=== PATIENT | male | born 1965 | race Hispanic/Latino ===

== ENCOUNTER 2019-03-10 10:03 | Day surgery (SDC) | payer OTHER ==
[2019-03-10] MEDS ORDERED: SODIUM CHLORIDE 0.9% 1000 ML 1,000 ML ONE (10:26)
--- NOTE | 2019-03-10 10:48 | Anesthesia Consultation ---
Anesthesia Consult and Med Hx Date of service: 03/10/19 - Airway Anesthetic Teeth Evaluation: Partials ROM Head & Neck: Adequate Mental/Hyoid Distance: Inadequate Mallampati Class: Class III Intubation Access Assessment: Possibly Difficult - Pulmonary Exam CTA: Yes - Cardiac Exam Cardiac Exam: RRR - Pre-Operative Health Status ASA Pre-Surgery Classification: ASA3 Proposed Anesthetic Plan: MAC - Pulmonary Hx Smoking: Yes (1PPD) Hx Respiratory Symptoms: No Hx Sleep Apnea: Yes (noncompliant with CPAP) - Cardiovascular System Hx Hypertension: Yes Hx Heart Attack/AMI: No - Central Nervous System CVA: No - Gastrointestinal Hx Gastroesophageal Reflux Disease: No - Endocrine Hx Renal Disease: No Hx Liver Disease: No Hx Non-Insulin Dependent Diabetes: Yes Hx Thyroid Disease: No - Other Systems Hx Obesity: Yes (BMI 33)
--- NOTE | 2019-03-10 10:48 | Anesthesia Day of Surgery ---
Anesthesia Day of Surgery - Day of Surgery Patient Examined: Yes Patient H&P Reviewed: Yes Patient is NPO: Yes
[2019-03-10] MEDS ORDERED: SODIUM CHLORIDE 0.9% 1000 ML 1,000 ML IV SCH (11:00)
[2019-03-10] MEDS ORDERED: PROPOFOL 200 MG/20 ML VIAL IV ONE ×2 (11:11)
--- NOTE | 2019-03-10 11:44 | Procedure Note ---
Date of procedure: 03/10/19 Pre-op diagnosis: Colon Polyp Screening/Hematochezia Post-op diagnosis: other (Hematochezia secondary to Minor,Internal Hemorrhoid and Mild to Moderate External Hemorrhoid/Multiple,Small Recto-Sigmoid Polyps (removed by cold biopsy)) Procedure: Colonoscopy with Biopsy Anesthesia: MAC Surgeon: HOME WU Estimated blood loss: minimal Pathology: list Specimen disposition: to lab Condition: stable Disposition: same day (Use OTC hemorrhoidal medication. Avoid aspirin and NSAID for 4days; otherwise resume home medication. Follow up in 1 to 2 weeks ([phone]).)
[2019-03-10] MEDS ORDERED: LIDOCAINE MPF (2%) 20 MG/1 ML VIAL 5 ML ONE (12:00)
[2019-03-10] MEDS ORDERED: WATER FOR IRRIG STERILE 250 ML BOTTLE IR ONE (12:03)
--- NOTE | 2019-03-10 12:04 | Operative Report ---
PROCEDURE: Colonoscopy with cold biopsy. INDICATIONS: This is a 53-year-old white male who had a colonoscopy done as part of colon polyp screening. He is also complaining on occasion of hematochezia. DESCRIPTION OF PROCEDURE: Colonoscopy was done after getting informed consent with MAC anesthesia. Initial rectal exam showed presence of [id number] external hemorrhoid, which may have been the cause of his hematochezia on 1 or 2 occasions. The instrument was then passed through the rectum onto the cecum, which was identified with ileocecal valve and the appendiceal orifice. The cecum was also visualized on the retroverted view and no additional pathology was noted. Visualization was fair to poor. The mucosa was washed with copious amounts of water. The cecum, ascending colon, transverse colon, descending colon and most of the sigmoid showed normal mucosa. There were multiple small polyps, possibly hyperplastic that were noted in the rectosigmoid area that were removed by cold biopsy with minimal bleeding from the biopsy sites and the rectum showed very minor internal hemorrhoid on the retroverted view not significant enough for banding. ASSESSMENT: Colon polyp screening, hematochezia secondary to minor internal hemorrhoid and [id number] external hemorrhoid. Multiple small rectosigmoid polyps that were removed. Visualization was fair to poor. PLAN: To have the patient avoid aspirin and aspirin-related products for the next few days, asked the patient to take [id number] hemorrhoidal medication and follow up in the office in 1-2 weeks' time. Procedure was done in the GI lab with assistance of the GI lab team, which included SILVIO, Melinda Aguilar and with assistance of anesthesia. JOB# [id number] PAULA/ARNAUD
[2019-03-10 12:20] VITALS: BP 103/81
--- NOTE | 2019-03-10 14:58 | Post Anesthesia Evaluation ---
- Post Anesthesia Evaluation Patient Participated: Yes Airway Patent: Yes Stable Respiratory Function: Yes Nausea/Vomiting: No Temp > 96.8F: Yes Pain Manageable: Yes Adequeate Hydration: Yes Anesthesia Complications: No Block Receding Appropriately: Not Applicable Patient on Ventilator: No
== END 2019-03-10 12:22 | disposition home or self-care (01) ==
LOC: GIO 10:03
DX: Z12.11 Encounter for screening for malignant neoplasm of colon (principal); D12.8 Benign neoplasm of rectum; K64.8 Other hemorrhoids; E11.9 Type 2 diabetes mellitus without complications; E78.00 Pure hypercholesterolemia, unspecified; I10 Essential (primary) hypertension; G47.30 Sleep apnea, unspecified; F17.210 Nicotine dependence, cigarettes, uncomplicated; E66.9 Obesity, unspecified; Z68.33 Body mass index [BMI] 33.0-33.9, adult; Z98.890 Other specified postprocedural states; Z79.82 Long term (current) use of aspirin; Z79.84 Long term (current) use of oral hypoglycemic drugs; Z79.899 Other long term (current) drug therapy
CPT/HCPCS: 45380; 82962; 88305; J2704; J7030